=== PATIENT | female | born 1955 | race African-American/Black ===

== ENCOUNTER → 2016-10-02 | Outpatient (CLI) | payer OTHER ==
--- NOTE | ~2016-10-02 | MR32 ---
[facility] A Service of [facility] RADIOLOGY TEXT RESULTS PATIENT: KELLI OLMSTEAD LOCATION: [facility] : 57 UNIT #: [id number] AGE: [address]: Osvaldo Yusuf MD SEX: F ORDER DR: [id number] [facility] [address] [place], [place] [address] [id number] O MR#: [id number] Acc #: [id number] NAME: KELLI OLMSTEAD : 1955 SEX: F STUDY DATE/TIME: 10/02/2016 16:33 UNIT: [facility] ROOM: STUDY DESCRIPTION: MR Cervical Wo Contrast Attending Physician: Osvaldo Yusuf M.D. Referring Physician: Osvaldo Yusuf M.D. Ordering Physician: Osvaldo Yusuf M.D. Primary Care Physician: [facility]. MRI CENTER REPORT This report is preliminary unless electronic signature is present. EXAM Cervical spine MRI without, cervical spine stenosis. HISTORY Neck pain with arthritis getting worse for 2 years. No known injury. Prior neck surgery with cadaver bone 2013. No history of cancer. COMMENT MRI of the cervical spine was performed without contrast using routine 1.5T imaging technique. Plain film comparison is from 12/07/2013. Sagittal alignment is essentially normal. There is developmental fusion at C4-5 with a hypoplastic fused intervertebral disc and associated vertebral body hypoplasia. The posterior elements are also fused. There has been prior surgery at the C3-4 level with placement of an anterior bone block spacer seen on the plain film 12/07/2013. On MRI, there is endplate spondylosis, loss of disc height, and disc desiccation at C3-4 and to a lesser extent C5-6 and C6-7. There are marrow endplate degenerative changes either side of C3-4, type 2. Partly seen to the left of midline anteriorly is probably the residua of bone block. There does not, however, appear to be fusion across the 3-4 disc on the MRI. There is no Chiari-I malformation. There is a focus of linear signal abnormality within the left side of the cervical cord centered at the level of C3-4. 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 On sagittal imaging at T3-4, there is a disc extrusion with some flattening of the anterior cord but the cord is still surrounded by CSF posteriorly. At C2-3, there is a tiny central disc protrusion. No canal stenosis. Mild bilateral foraminal narrowing. At C3-4, there is concentric desiccated disc osteophyte complex. [facility] A Service of [facility] RADIOLOGY TEXT RESULTS PATIENT: KELLI OLMSTEAD [facility] UNIT #: [id number] AGE: [address]: Osvaldo Yusuf MD SEX: F ORDER DR: Uncovertebral osteophyte formation bilaterally. Bilateral facet degenerative change with combination of findings resulting in severe right vkkvrzli-kq-abhdjc left-side foraminal impingement and approximately papq-hl-oybkuuiv cord flattening and canal stenosis. At C4-5, above-noted developmental fusion. No canal stenosis or foraminal impingement. At C5-6, concentric desiccated disc bulge and endplate spondylosis with superimposed broad posterior protrusion. Mild cord flattening and canal stenosis with uncovertebral osteophyte formation bilaterally and severe left greater than right-sided foraminal impingement. At C6-7, there is mild concentric disc bulge, superimposed broad posterior protrusion. There is mild effacement of the anterior thecal sac. There is some uncovertebral osteophyte formation left greater than right. Mild right-sided facet degenerative change. Mild right and severe left-side foraminal management. C7-T1, mild bilateral facet degenerative change and minor posterior disc bulge. No canal stenosis or foraminal impingement. There are lesions in the thyroid gland, largest on the right about 1.3 cm in dimension. These are nonspecific and should be further characterized with a nonemergent thyroid ultrasound. While likely benign, malignant entity is not excluded on the basis of MRI. IMPRESSION 1. 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 2. Essentially normal alignment. 3. Postoperative changes C3-4 with anterior bone block placement, better seen on plain film comparison 12/07/2013. No evidence for fusion across the 3-4 disc on MRI. There is canal stenosis and foraminal compromise but I do not have a comparison MRI to determine whether disease is improved or progressed. See discussion above. 4. 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 5. 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 Please refer to the comment section and correlate with radicular symptoms. 6. Lesions in the thyroid gland. The largest on the right should be further characterized with a followup nonemergent thyroid ultrasound. They are nonspecific on MRI. Dictated by... [facility] A Service of [facility] RADIOLOGY TEXT RESULTS PATIENT: KELLI OLMSTEAD LOCATION: [facility] : 57 UNIT #: [id number] AGE: [address]: Osvaldo Yusuf MD SEX: F ORDER DR: Elaine Peguero M.D. THIS IS AN ELECTRONICALLY VERIFIED REPORT Elaine Peguero M.D. at 10/03/2016 4:37 PM JING/james TD: 10/03/2016 12:18 JOB #: [id number] MRI CENTER REPORT Page 1 of 1 COPY
== END | disposition home or self-care (01) ==
LOC: CMRI 15:49
DX: M48.02 Spinal stenosis, cervical region (principal); M47.812 Spondylosis without myelopathy or radiculopathy, cervical region; E07.9 Disorder of thyroid, unspecified; Z98.1 Arthrodesis status
CPT/HCPCS: 72141

== ENCOUNTER → 2016-10-09 | Outpatient (CLI) | payer OTHER ==
--- NOTE | ~2016-10-09 | US128 ---
[id number] [facility] [address] [place], [place] [address] [id number] O MR#: [id number] Acc #: [id number] NAME: KELLI OLMSTEAD : 1955 SEX: F STUDY DATE/TIME: 10/09/2016 10:52 UNIT: [facility] ROOM: STUDY DESCRIPTION: Thyroid Attending Physician: Osvaldo Yusuf M.D. Referring Physician: Osvaldo Yusuf M.D. Ordering Physician: Osvaldo Yusuf M.D. Primary Care Physician: Ro Deutsch M.D. MEDICAL IMAGING REPORT This report is preliminary unless electronic signature is present EXAM Thyroid ultrasound INDICATIONS Thyroid nodules seen on the MRI of the cervical spine. Abnormal radiographic study. Thyroid nodules. COMPARISON MR cervical spine dated 10/02/2016 FINDINGS Jones-scale and color ultrasound of the thyroid was performed. The right lobe of the thyroid measures 5 x 2.2 x 1.9 cm. The left lobe measures 4.4 x 1.6 x 1.7 cm. The isthmus measures 0.3 cm in thickness. The echogenicity and echotexture of the thyroid parenchyma is within normal limits. There is normal background vascularity. There are scattered thyroid nodules throughout both lobes of the thyroid. The largest nodule in the inferior right thyroid measures 1.4 x 1.3 x 1.1 cm. This is a completely cystic nodule. There is a solitary left thyroid nodule measuring 1.1 x 1.0 x 0.7 cm. This is a solid nodule, however no microcalcifications. IMPRESSION Small bilateral thyroid nodules. No suspicious or aggressive features are identified. These nodules do not meet current published criteria to warrant further evaluation with fine needle aspiration. Dictated by... Shiva Bruce M.D. THIS IS AN ELECTRONICALLY VERIFIED REPORT Shiva Bruce M.D. at 10/10/2016 3:04 PM JUANJOSE/kofi TD: 10/10/2016 00:12 JOB #: [id number] MEDICAL IMAGING REPORT Page 1 of 1 COPY
== END | disposition home or self-care (01) ==
LOC: CWCC 10:36
DX: E04.2 Nontoxic multinodular goiter (principal)
CPT/HCPCS: 76536